=== PATIENT | female | born 1990 | race Caucasian/White ===

== ENCOUNTER 2020-03-22 10:40 | Emergency (ER) | payer MEDICARE, MEDICAID, SELFPAY ==
[2020-03-22 10:52] VITALS: BP 140/93; PULSE 96; RESP 16; O2SAT 100
--- NOTE | 2020-03-22 10:55 | ED.FEMALEGU ---
HPI - Female Genitourinary General Chief complaint: Urogenital-Female Stated complaint: possible uti Time Seen by Provider: 03/22/20 10:55 Source: patient Mode of arrival: ambulatory Limitations: no limitations History of Present Illness HPI Narrative: Genesis Miguel is a 29 yo female with a hx of diabetes controlled with oral medication, HTN, high cholesterol, comes to express care with urinary tract symptoms of frequency and burning for the last 3 to 4 days. She states that she has urinary tract infections infrequently, her blood sugar this morning was 160 but she is on multiple oral medications rather than insulin and so only checks her blood sugar once or twice a day. Related Data Home Medications Medication Instructions Recorded Confirmed aspirin 81 mg tablet,delayed 81 mg PO DAILY 06/08/19 03/22/20 release lisinopril 30 mg tablet 30 mg PO DAILY 06/08/19 03/22/20 Allergies Allergy/AdvReac Type Severity Reaction Status Date / Time amoxicillin Allergy Unknown Hives Verified 09/07/19 09:39 heparin Allergy Unknown Unknown Verified 09/07/19 09:39 Penicillins Allergy Unknown Hives Verified 09/07/19 09:39 Review of Systems Review of Systems: Narrative: CONSTITUTIONAL: Denies fever, chills, sweats. EYES: Denies visual changes, redness, discharge. ENT: Denies rhinorrhea, congestion, sore throat, otalgia. CARDIOVASCULAR: Denies chest pain, palpitations, edema. RESPIRATORY: Denies dyspnea, wheezing, cough GASTROINTESTINAL: Denies abdominal pain, nausea, vomiting, diarrhea. GENITOURINARY: Has dysuria, hematuria, abnormal discharge SKIN: Denies rash or itching. NEUROLOGIC: Denies numbness, or focal weakness. PSYCHIATRIC: Denies anxiety or depression. [facility] Past Medical History Medical History Hypertension Hypothyroidism Leukocytosis Multiple sclerosis Obesity Type 2 diabetes mellitus Family History Family History Father Patient's father is in good health Mother Diabetes mellitus Family history of multiple sclerosis Social History Social History Smoking status: Never smoker Alcohol intake: never Gender identity (if verbalized by the patient): Female Comments At time of signature, I agree with nursing past medical, surgical, social and family history. There is no relevant family history pertinent to the presenting complaint. Exam Narrative: Exam Narrative: GENERAL: This is a well-nourished, well-developed patient, in mild distress. HEAD: normocephalic, atraumatic. EYES: Sclera clear/white. Vision is grossly intact. EARS: External ears normal. Hearing grossly intact. NOSE: External nose normal without nasal discharge, nares without redness, no rhinorrhea. THROAT: Mucous membranes moist, NECK: Neck supple, non-tender CARDIOVASCULAR: Regular rate and rhythm without murmurs, gallops, or rubs. RESPIRATORY: Clear to auscultation. Breath sounds equal bilaterally. No wheezes, rales, or rhonchi. GASTROINTESTINAL: Abdomen soft, non-tender, SKIN: warm, intact with no suspicious lesions or rash, good texture and turgor. NEURO: awake, alert, and oriented to person, place and time. There were no obvious focal neurologic abnormalities. Steady gait EXTREMITIES: Normal range of motion. BACK: Nontender without deformity Course Course Emergency Course: UA done-3+ glucose 2+ blood leukocytes +1; patient is taking no precautions to avoid UTIs and taking in adequate fluids Started on Bactrim; patient is allergic to amoxicillin and so chose not to use Keflex Follow-up with primary care physician Vital Signs Vital signs: Vital Signs Pulse Rate 96 03/22/20 10:52 Respiratory Rate 16 03/22/20 10:52 Blood Pressure 140/93 H 03/22/20 10:52 Pulse Oximetry 100 03/22/20 10:52 Temperature 98.7 F 03/22/20 11:16 Pulse Rate 96 03/22/20
[2020-03-22 11:16] VITALS: TEMP 37.1
== END 2020-03-22 11:20 | disposition home or self-care (01) ==
PROVIDERS: Emergency Provider Nurse Practitioner; PCP Internal Medicine
DX: N30.01 Acute cystitis with hematuria (principal); I10 Essential (primary) hypertension; E03.9 Hypothyroidism, unspecified; G35 Multiple sclerosis; E11.9 Type 2 diabetes mellitus without complications; E66.9 Obesity, unspecified; Z68.42 Body mass index [BMI] 45.0-49.9, adult; Z79.82 Long term (current) use of aspirin
CPT/HCPCS: 81003; 87077; 87086; 87088; 87186; 99213; G0463

== ENCOUNTER 2021-11-06 14:38 | Outpatient (CLI) | payer MEDICARE, MEDICAID, SELFPAY ==
[2021-11-06 19:22] LABS: Creatinine Urine 103.6 mg/dL
[2021-11-06 19:23] LABS: MALB Creatinine Ratio 6.6 mg/g (0-30); Microalbumin Urine Random 6.8 mg/L (0-16.7)
== END 2021-11-06 14:39 | disposition home or self-care (01) ==
LOC: ANHWCLAB 14:43
PROVIDERS: PCP Internal Medicine; Referring Provider Internal Medicine Endocrinology, Diabetes & Metabolism; Visit Provider Internal Medicine Endocrinology, Diabetes & Metabolism
DX: E11.9 Type 2 diabetes mellitus without complications (principal)
CPT/HCPCS: 82043

== ENCOUNTER 2022-01-08 10:30 | Outpatient (RCR) | payer MEDICARE, MEDICAID, SELFPAY ==
[2021-12-11 13:16] VITALS: BMI 56.1
[2021-12-11 13:22] VITALS: BMI 56.1
== END 2022-02-25 10:42 | disposition home or self-care (01) ==
LOC: ANHDMC 10:30
PROVIDERS: PCP Internal Medicine; Visit Provider Internal Medicine Endocrinology, Diabetes & Metabolism
DX: E11.65 Type 2 diabetes mellitus with hyperglycemia (principal); Z71.89 Other specified counseling
CPT/HCPCS: 99199

== ENCOUNTER 2022-12-25 11:08 | Emergency (ER) | payer MEDICARE, MEDICAID, SELFPAY ==
--- NOTE | ~2022-12-25 | XR_ITS ---
EXAMINATION: XR foot LT 2V INDICATION: Left foot pain TECHNIQUE: Two views of the left foot are obtained. COMPARISON: 02/24/2016 FINDINGS: Bone alignment is normal. There is no fracture. Posterior and plantar calcaneal enthesophyt es are noted. The soft tissues are unremarkable. There is mild osteoarthritis of multiple interphalan geal joints. IMPRESSION: 1. No acute osseous abnormality. Reviewed, dictated and finalized at location [facility].
[2022-12-25 11:16] VITALS: BP 135/86; PULSE 93; RESP 18; TEMP 36.8; O2SAT 98
--- NOTE | 2022-12-25 13:30 | ED.EXTPRO ---
HPI - Extremity Problem General Chief complaint: Extremity Problem,Nontraumatic Stated complaint: heel pain Time Seen by Provider: 12/25/22 12:01 History of Present Illness HPI Narrative: Patient is a 32-year-old female presenting with left foot pain. Patient states that she has had worsening left heel pain for the last several weeks. States that she thought it was plantar fasciitis. States that she has been rolling her foot on a can with minimal relief. States that she sometimes will take Excedrin which does seem to help. She denies any recent trauma. No numbness or weakness. Related Data Home Medications Medication Instructions Recorded Confirmed aspirin 81 mg tablet,delayed 81 mg PO DAILY 06/08/19 12/25/22 release (Adult Low Dose Aspirin) rituximab 10 mg/mL IV .Q6 by Neuro 01/23/21 12/25/22 concentrate,intravenous valacyclovir 500 mg tablet 500 mg PO DAILY 05/19/22 12/25/22 levothyroxine 125 mcg tablet 125 mcg PO .COMPLEX 11/18/22 12/25/22 Allergies Allergy/AdvReac Type Severity Reaction Status Date / Time amoxicillin Allergy Unknown Hives Verified 12/25/22 10:30 heparin Allergy Unknown Unknown Verified 12/25/22 10:30 Penicillins Allergy Unknown Hives Verified 12/25/22 10:30 Review of Systems Review of Systems: All systems reviewed & are unremarkable except as noted in HPI and below PMFSH Past Medical History Medical History Acute cystitis without hematuria Body mass index (BMI) 35 or more (11/17/18) Essential hypertension Hyperlipidemia Hypertension Hypothyroidism Leukocytosis Multiple sclerosis Obesity Type 2 diabetes mellitus with hyperglycemia, with long-term current use of insulin Family History Family History Father Patient's father is in good health Mother Diabetes mellitus Family history of multiple sclerosis Social History Social History Smoking status: Never smoker Alcohol intake: never Lack of Transportation: No Lack of Food: Never True Current Housing: I Have Housing Concerned About Future Housing: No Difficulty Paying Gas/Electric Bills: No Difficulty Paying for Meds: No Currently Unemployed: No Education: High School Diploma/GED Difficulty w/ Childcare or Family Care: No Gender identity (if verbalized by the patient): Female Exam Narrative: GENERAL: Well-appearing, well-nourished, and in no acute distress. HEAD: Normocephalic, atraumatic. EYES: PERRLA and EOMI. ENT: Nares clear, no rhinorrhea or epistaxis. Mucous membranes moist. NECK: Supple. CHEST: No respiratory distress. HEART: Regular rate and rhythm. Normal peripheral pulses. ABDOMEN: Nondistended EXTREMITIES: Normal range of motion. No edema. Both feet without tenderness or abnormalities, bilateral pulses 2+ SKIN: Warm, dry, no rash. NEURO: No focal deficits. Alert and oriented x3. PSYCH: Normal mood and affect. Course Vital Signs Vital signs: Vital Signs Temperature 98.2 F 12/25/22 11:16 Pulse Rate 93 12/25/22 11:16 Respiratory Rate 18 12/25/22 11:16 Blood Pressure 135/86 12/25/22 11:16 Pulse Oximetry 98 12/25/22 11:16 Oxygen Delivery Room Air 12/25/22 11:16 Temperature 98.2 F 12/25/22 11:16 Pulse Rate 84 12/25/22 14:28 Respiratory Rate 18 12/25/22 14:28 Blood Pressure 131/82 12/25/22 14:28 Pulse Oximetry 98 12/25/22 14:28 Oxygen Delivery Room Air 12/25/22 11:16 MDM - Extremity (Nontraumatic) MDM Narrative Medical decision making narrative: Patient is a 32-year-old female presenting with worsening left heel pain. Vitals within normal limits. Exam remarkable for the above. X-rays without acute osseous abnormalities. There are posterior and plantar calcaneal enthesophytes. Consistent with plantar fasciitis. Discussed with the patient appropriate supp
[2022-12-25 14:28] VITALS: BP 131/82; PULSE 84; RESP 18; O2SAT 98
== END 2022-12-25 14:30 | disposition home or self-care (01) ==
PROVIDERS: Emergency Provider Emergency Medicine; PCP Internal Medicine
DX: M79.672 Pain in left foot (principal); G35 Multiple sclerosis; I10 Essential (primary) hypertension; E11.9 Type 2 diabetes mellitus without complications; E78.5 Hyperlipidemia, unspecified; E03.9 Hypothyroidism, unspecified; E66.9 Obesity, unspecified; Z68.41 Body mass index [BMI] 40.0-44.9, adult; Z79.84 Long term (current) use of oral hypoglycemic drugs; Z79.4 Long term (current) use of insulin; Z79.82 Long term (current) use of aspirin
CPT/HCPCS: 73620; 99283

== ENCOUNTER 2023-11-24 09:42 | Emergency (ER) | payer MEDICARE, MEDICAID, SELFPAY ==
[2023-11-24 09:53] VITALS: BP 122/71; PULSE 104; RESP 18; TEMP 36.2; O2SAT 98
--- NOTE | 2023-11-24 10:40 | ED.URI ---
HPI - URI/Sore Throat General Chief Complaint: Upper Respiratory Infection Stated Complaint: Sore Throat Time Seen by Provider: 11/24/23 10:41 Source: patient and RN notes reviewed Mode of arrival: ambulatory Limitations: no limitations History of Present Illness HPI Narrative: 33-year-old female presents with concern for 1 and half week history of sore throat, cough, sinus drainage. She reports taking [id number] medications without relief. MD elicited complaint: cough, sore throat and nasal congestion Related Data Home Medications Medication Instructions Recorded Confirmed aspirin 81 mg tablet,delayed 81 mg PO DAILY 06/08/19 11/24/23 release (Adult Low Dose Aspirin) valacyclovir 500 mg tablet 500 mg PO DAILY 05/19/22 11/24/23 levothyroxine 125 mcg tablet 125 mcg PO .COMPLEX 11/18/22 11/24/23 Allergies Allergy/AdvReac Type Severity Reaction Status Date / Time amoxicillin Allergy Unknown Hives Verified 11/24/23 10:17 heparin Allergy Unknown Unknown Verified 11/24/23 10:17 Penicillins Allergy Unknown Hives Verified 11/24/23 10:17 Review of Systems Review of Systems: CONSTITUTIONAL: Denies malaise, chills, sweats, or fever. EYES: Denies visual changes, redness, or discharge. ENT: Reports rhinorrhea, sore throat. Denies sinus pain, otalgia CARDIOVASCULAR: Denies chest pain, palpitations, or edema. RESPIRATORY: Reports cough. Denies dyspnea. GASTROINTESTINAL: Denies abdominal pain, nausea, vomiting, diarrhea SKIN: Denies rash or itching. MUSCULOSKELETAL: Denies myalgia. NEUROLOGIC: Denies headache. All systems reviewed & are unremarkable except as noted in HPI and below PMFSH Past Medical History Medical History Acute cystitis without hematuria Body mass index (BMI) 35 or more (11/17/18) Essential hypertension Hyperlipidemia Hypertension Hypothyroidism Leukocytosis Multiple sclerosis Obesity Type 2 diabetes mellitus with hyperglycemia, with long-term current use of insulin Surgical History Surgical History H/O thyroidectomy (~07/2022) Family History Family History Father Patient's father is in good health Mother Diabetes mellitus Family history of multiple sclerosis Social History Social History Smoking status: Never smoker Alcohol intake: never Lack of Transportation: No Lack of Food: Never True Current Housing: I Have Housing Concerned About Future Housing: No Difficulty Paying Gas/Electric Bills: No Difficulty Paying for Meds: No Currently Unemployed: No Education: High School Diploma/GED Difficulty w/ Childcare or Family Care: No Gender identity (if verbalized by the patient): Female Comments At time of signature, agree with nursing past medical, surgical, social and family history. There is no relevant family history pertinent to the presenting complaint Exam Narrative: GENERAL: Well-appearing, well-nourished, and in no acute distress. HEAD: Normocephalic EYES: PERRLA, conjunctivae clear ENT: Nares clear, turbinates edematous and erythematous. Mucous membranes moist. TM pearly cedillo with dull light reflex bilaterally; no tragal tenderness. Oropharynx not erythematous without lesions. Tonsils not enlarged and without exudate, no drooling, no hoarseness, no trismus, uvula midline. NECK: Supple. No lymphadenopathy CHEST: Clear to auscultation, breath sounds equal. No wheezing, rhonchi, rales, or stridor. No respiratory distress, speaks in full sentences. Cough noted HEART: Regular rate and rhythm. No murmur heard. SKIN: Warm, dry, no rash. NEURO: Alert and oriented x3. PSYCH: Normal mood and affect Course Course Emergency Course: Patient is aware of diagnosis, understands and agrees to treatment plan. Anticipatory guidance given. Patient ag
== END 2023-11-24 10:57 | disposition home or self-care (01) ==
PROVIDERS: Emergency Provider Nurse Practitioner; PCP Internal Medicine
DX: J32.9 Chronic sinusitis, unspecified (principal); J40 Bronchitis, not specified as acute or chronic; Z20.822 Contact with and (suspected) exposure to COVID-19; I10 Essential (primary) hypertension; E78.5 Hyperlipidemia, unspecified; G35 Multiple sclerosis; E66.9 Obesity, unspecified; Z68.43 Body mass index [BMI] 50.0-59.9, adult; E89.0 Postprocedural hypothyroidism; E11.9 Type 2 diabetes mellitus without complications; Z79.82 Long term (current) use of aspirin; Z79.4 Long term (current) use of insulin; Z79.84 Long term (current) use of oral hypoglycemic drugs
CPT/HCPCS: 87081; 87426; 87804; 87880; 99213; G0463

== ENCOUNTER 2024-02-08 15:37 | Emergency (ER) | payer MEDICARE, MEDICAID, SELFPAY ==
--- NOTE | 2024-02-08 15:39 | ED.FEMALEGU ---
HPI - Female Genitourinary General Chief complaint: Urogenital-Female Stated complaint: UTI Time Seen by Provider: 02/08/24 15:56 Source: patient and RN notes reviewed Mode of arrival: ambulatory Limitations: no limitations History of Present Illness HPI Narrative: 33-year-old female presents with concern of for urine frequency, urgency. She denies dysuria. She reports history of urinary tract infections. She denies body aches, chills, fever, sweats. She denies nausea, vomiting, back pain, abdominal pain. MD elicited complaint: UTI Related Data Home Medications Medication Instructions Recorded Confirmed aspirin 81 mg tablet,delayed 81 mg PO DAILY 06/08/19 02/08/24 release (Adult Low Dose Aspirin) valacyclovir 500 mg tablet 500 mg PO DAILY 05/19/22 02/08/24 levothyroxine 300 mcg tablet 300 mcg PO DAILY 02/08/24 02/08/24 Allergies Allergy/AdvReac Type Severity Reaction Status Date / Time amoxicillin Allergy Unknown Hives Verified 02/08/24 15:46 Penicillins Allergy Unknown Hives Verified 02/08/24 15:46 Review of Systems Review of Systems: CONSTITUTIONAL: Denies malaise, chills, sweats, or fever. CARDIOVASCULAR: Denies chest pain, palpitations, or edema. RESPIRATORY: Denies cough or dyspnea. GASTROINTESTINAL: Denies abdominal pain, nausea, vomiting, diarrhea GENITOURINARY: Reports frequency, urgency. Denies dysuria, suprapubic pain, flank pain or hematuria. SKIN: Denies rash or itching. MUSCULOSKELETAL: Denies back pain or myalgia. All systems reviewed & are unremarkable except as noted in HPI and below PMFSH Past Medical History Medical History Acute cystitis without hematuria Body mass index (BMI) 35 or more (11/17/18) Essential hypertension Hyperlipidemia Hypertension Hypothyroidism Leukocytosis Multiple sclerosis Obesity Type 2 diabetes mellitus with hyperglycemia, with long-term current use of insulin Surgical History Surgical History H/O thyroidectomy (~07/2022) Family History Family History Father Patient's father is in good health Mother Diabetes mellitus Family history of multiple sclerosis Social History Social History (Reviewed 02/02/24 @ 10:35 by Ingrid Nj [facility]) Smoking status: Never smoker Alcohol intake: never Lack of Transportation: No Lack of Food: Never True Current Housing: I Have Housing Concerned About Future Housing: No Difficulty Paying Gas/Electric Bills: No Difficulty Paying for Meds: No Currently Unemployed: No Education: High School Diploma/GED Difficulty w/ Childcare or Family Care: No Gender identity (if verbalized by the patient): Female Comments At time of signature, agree with nursing past medical, surgical, social and family history. There is no relevant family history pertinent to the presenting complaint Exam Narrative: GENERAL: Well-appearing, well-nourished, and in no acute distress. HEAD: Normocephalic. EYES: PERRLA, conjunctivae clear. NECK: Supple. No lymphadenopathy CHEST: Clear to auscultation. No respiratory distress. HEART: Regular rate and rhythm. ABDOMEN: Soft, nontender upon palpation, nondistended, normal active bowel sounds, no palpable or pulsatile masses, no guarding. No CVA tenderness SKIN: Warm, dry, no rash. NEURO: Alert and oriented x3. PSYCH: Normal mood and affect Course Course Emergency Course: Patient is aware of diagnosis, understands and agrees to treatment plan. Anticipatory guidance given. Patient agrees to follow-up as directed and is aware of reasons to seek care at the emergency department. Portions of this record may have been created with voice recognition software Level of Care: Express Care Visit Vital Signs Vital signs: Vital Signs Temperature 98.2 F 02/08/24 15:46 Pulse Rate 99 02/08/24 15:46 Re
[2024-02-08 15:46] VITALS: BP 129/81; PULSE 99; RESP 20; TEMP 36.8; O2SAT 99
[2024-02-08 15:54] VITALS: BP 129/81; PULSE 99; RESP 20; TEMP 36.8; O2SAT 99
[2024-02-08 15:55] LABS: EDUAAPPEAR Cloudy; EDUABILI Negative; EDUABLOOD 2+; EDUACOLOR1 Yellow; EDUAGLUCOSE 2+; EDUAKETONE Negative; EDUALEUKO Trace; EDUANITRATE Negative; EDUAPH 5.5; EDUAPROTEIN 1+; EDUASPGRAVITY 1.025; EDUAUROBILI 0.2
== END 2024-02-08 16:05 | disposition home or self-care (01) ==
PROVIDERS: Emergency Provider Nurse Practitioner; PCP Nurse Practitioner
DX: R35.0 Frequency of micturition (principal); R39.15 Urgency of urination; I10 Essential (primary) hypertension; E78.5 Hyperlipidemia, unspecified; G35 Multiple sclerosis; E11.9 Type 2 diabetes mellitus without complications; Z79.4 Long term (current) use of insulin; E66.9 Obesity, unspecified; Z68.42 Body mass index [BMI] 45.0-49.9, adult; E89.0 Postprocedural hypothyroidism; Z79.82 Long term (current) use of aspirin
CPT/HCPCS: 81003; 87086; 99213; G0463

== ENCOUNTER 2024-05-06 10:18 | Outpatient (CLI) | payer MEDICARE, MEDICAID, SELFPAY ==
--- NOTE | ~2024-05-06 | XR_ITS ---
Left Shoulder Technique: AP and scapular Y views were obtained. Clinical History: Pain Findings: No fracture or dislocation is seen. Osseous alignment is anatomic. The glenohumeral and acr omioclavicular joint spaces are preserved. Soft tissues are unremarkable. Impression: Unremarkable left shoulder radiographs. Reviewed, dictated and finalized at [facility]. WELL SERVICES SUPERINTENDENT Impression: Unremarkable left shoulder radiographs.
== END 2024-05-06 10:19 | disposition home or self-care (01) ==
PROVIDERS: PCP Nurse Practitioner; Visit Provider Nurse Practitioner
DX: M25.512 Pain in left shoulder (principal)
CPT/HCPCS: 73030

== ENCOUNTER 2024-06-07 14:44 | Outpatient (CLI) | payer MEDICARE, MEDICAID, SELFPAY ==
--- NOTE | ~2024-06-07 | MR_ITS ---
MRI of the left shoulder Technique: Axial proton-density fat-sat images, coronal proton density fat-sat and T2 fat-sat images, and sagittal T1-weighted and T2 fat-sat images were acquired. Clinical History: Pain Findings: No significant degenerative change seen at the AC joint. Coracoclavicular, coracoacromial, and coracohumeral ligaments are intact. Supraspinatus and infraspinatus tendons are intact, without partial or full-thickness tear. There is minimal tendinosis. Subscapularis tendon intact with mild tendinosis. Tendon of long head of the jackie ps appears to be intact. No labral tear evident. Inferior glenohumeral ligament may be mildly thickened and hyperintense. There is mild chondromalacia of the glenohumeral joint. No significant joint effusion. No fluid distention of the subacromial/sub deltoid bursa. No muscle atrophy or edema. Impression: Mild thickening and increased signal of the inferior glenohumeral ligament could reflect adhesive cap sulitis. Minimal rotator cuff tendinosis. Reviewed, dictated and finalized at [facility]. RESEARCH SCIENTIST Impression: Mild thickening and increased signal of the inferior glenohumeral ligament coul d reflect adhesive capsulitis. Minimal rotator cuff tendinosis.
== END 2024-06-07 14:45 | disposition home or self-care (01) ==
PROVIDERS: PCP Nurse Practitioner; Visit Provider Nurse Practitioner
DX: M24.212 Disorder of ligament, left shoulder (principal); M25.512 Pain in left shoulder
CPT/HCPCS: 73221